=== PATIENT | male | born 1945 | race Caucasian/White ===

== ENCOUNTER 2022-04-27 10:15 | Emergency (ER) | payer MEDICARE ==
[~2022-04-27] VITALS: Ht 180.3 cm; Wt 100.0 kg
[2022-04-27] MEDS ORDERED: TAMS-13 PO (10:33)
[2022-04-27 12:55] VITALS: BP 111/72
== END 2022-04-27 13:45 | disposition home or self-care (01) ==
LOC: EMS 10:19
DX: S22.31XA Fracture of one rib, right side, initial encounter for closed fracture (principal); N40.0 Benign prostatic hyperplasia without lower urinary tract symptoms; V87.8XXA Person injured in other specified noncollision transport accidents involving motor vehicle (traffic), initial encounter; Y93.89 Activity, other specified; Y92.89 Other specified places as the place of occurrence of the external cause; Y99.8 Other external cause status
CPT/HCPCS: 71101; 99283